=== PATIENT | male | born 1995 | race Caucasian/White ===

== ENCOUNTER 2021-10-01 23:39 | Emergency (ER) | payer OTHER ==
[2021-10-02] MEDS ORDERED: BACTROBAN OINT22 GM EXT (02:21)
== END 2021-10-02 02:26 | disposition home or self-care (01) ==
LOC: ER1 23:39
DX: T20.17XA Burn of first degree of neck, initial encounter (principal); T20.10XA Burn of first degree of head, face, and neck, unspecified site, initial encounter; X08.8XXA Exposure to other specified smoke, fire and flames, initial encounter
CPT/HCPCS: 99283